=== PATIENT | male | born 1990 | race Caucasian/White ===

== ENCOUNTER 2017-06-11 22:48 | Emergency (ER) | payer OTHER ==
[~2017-06-11] VITALS: Ht 180.3 cm; Wt 83.0 kg
[2017-06-11 22:55] VITALS: BP 159/96
--- NOTE | 2017-06-12 00:07 | NUR ---
PT TAKEN TO BED 10
--- NOTE | 2017-06-12 00:09 | NUR ---
Dr. Renee evaluating patient at bedside.
[2017-06-12] MEDS ORDERED: KETOROLAC 60 MG/2 ML VIAL IM ONE (00:15)
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
[2017-06-12 01:10] VITALS: BP 141/96
== END 2017-06-12 01:10 | disposition home or self-care (01) ==
LOC: MED 22:48
DX: S01.01XA Laceration without foreign body of scalp, initial encounter (principal); X58.XXXA Exposure to other specified factors, initial encounter; Y93.89 Activity, other specified; Y92.89 Other specified places as the place of occurrence of the external cause; Y99.8 Other external cause status
CPT/HCPCS: 70250; 90471; 90715; 96372; 99284; J1885